=== PATIENT | male | born 1985 | race Two or more races ===

== ENCOUNTER 2017-04-12 23:49 | Emergency (ER) | payer BC ==
[~2017-04-12] VITALS: Ht 190.5 cm; Wt 99.8 kg
[2017-04-12] MEDS ORDERED: ONDA4TAB5 PO (23:58)
--- NOTE | 2017-04-13 00:08 | NUR ---
Dr. Cannon at bedside for eval.
[2017-04-13] MEDS ORDERED: HYDROMORPHONE 1 MG/1 ML DISP.SYRIN IV ONE (00:15)
[2017-04-13] MEDS ORDERED: ONDANSETRON 4 MG/2 ML VIAL IV ONE ×2 (00:15→01:45)
[2017-04-13] MEDS ORDERED: IV NORMAL SALINE 1000 ML BAG IV ONE (00:15)
--- NOTE | 2017-04-13 00:15 | NUR ---
UA ordered, patient unable to give urine at this time, advised to give urine when possible.
[2017-04-13 00:30] LABS: BASOPHILS % (AUTO) 0.4 % (0.0-2.0); EOSINOPHILS # (AUTO) 0.1 K/uL (0.0-0.7); EOSINOPHILS % (AUTO) 0.5 % (0.0-7.0); HEMATOCRIT 47.5 % (40-50); HEMOGLOBIN 15.5 G/DL (14.0-18.0); LYMPHOCYTES # (AUTO) 1.5 K/UL (0.8-4.8); LYMPHOCYTES % (AUTO) 13.4 % (20.5-51.5); MEAN CORPUSCULAR HEMOGLOBIN 30.6 UUG (27.0-31.0); MEAN CORPUSCULAR HGB CONC 33 g/dL (32.0-37.0); MEAN CORPUSCULAR VOLUME 94.2 FL (82.0-92.0); MONOCYTES # (AUTO) 0.8 K/UL (0.1-1.30); MONOCYTES % (AUTO) 6.9 % (0.0-11.0); NEUTROPHILS % (AUTO) 78.8 % (38.5-71.5); PLATELET COUNT (AUTO) 297 K/UL (150-450); RED BLOOD CELL COUNT(AUTO) 5.05 MIL/UL (4.7-6.1); WHITE BLOOD COUNT (AUTO) 11.4 K/UL (4.0-11.2)
[2017-04-13] MEDS ORDERED: ONDANSETRON 4 MG/2 ML VIAL ONE ×2 (00:32→01:14)
[2017-04-13] MEDS ORDERED: HYDROMORPHONE 1 MG/1 ML DISP.SYRIN ONE (00:32)
[2017-04-13 00:35] LABS: CREATININE 1.1 mg/dL (0.6-1.3); POTASSIUM 3.9 mmol/L (3.5-5.1)
[2017-04-13 00:41] LABS: BILIRUBIN,DIRECT 0.2 mg/dL (0.0-0.2); BILIRUBIN,TOTAL 0.8 mg/dL (0.2-1.0)
[2017-04-13] MEDS ORDERED: ONDANSETRON IV *ER 4 MG/2 ML VIAL IV ONE (01:00)
[2017-04-13] MEDS ORDERED: PROMETHAZINE HCL 25 MG/1 ML VIAL IM ONE (01:45)
--- NOTE | 2017-04-13 01:45 | NUR ---
Patient was ready for d/c. IV was removed and instructions were given, paperwork was signed. While patient was getting up out of bed felt nauseous again and vomitted 150ml. MD notified and phenergan IM given. patient back in bed in a sitting position. Will monitor.
--- NOTE | 2017-04-13 02:46 | NUR ---
Patient discharged to home in stable conditon. Written and verbal after care instructions given. Patient verbalizes understanding of instructions. Patient left with stable gait. patient felt better after phenergan IM.
[2017-04-13 02:47] VITALS: BP 124/62
== END 2017-04-13 02:51 | disposition home or self-care (01) ==
LOC: ER 23:54
DX: A08.4 Viral intestinal infection, unspecified (principal)
CPT/HCPCS: 80048; 80076; 83690; 85025; 96361; 96372; 96374; 96375; 96376; 99284; A4663; J1170; J2405 ×2; J7030 ×2; 36415